=== PATIENT | male | born 1970 | race African-American/Black ===

== ENCOUNTER 2023-09-18 18:25 | Inpatient (IN) | payer OTHER ==
[2023-09-18] MEDS: ACETAMINOPHEN 1000 MG/100 ML BAG IVPB ONE (20:26)
[2023-09-18 20:28] LABS: BASO % 0.2 % (0-2.0); EOS % 4.9 % (0-4.5); HEMATOCRIT 40.9 % (35.4-49); HEMOGLOBIN 13.7 GM/dL (11.7-16.9); LYMPH % 32.6 % (8-40); MCH 27.9 pg (25.7-33.7); MCHC 33.6 g/dl (32.0-35.9); MEAN PLT VOLUME 8.5 fl (7.5-11.1); MONO % 18.7 % (3.8-10.2); NEUT % 43.6 % (42.8-82.8); PLATELET COUNT 185 10^3/uL (134-434); RBC 4.92 M/mm3 (4.00-5.60); RDW 15.6 % (11.9-15.9); WHITE BLOOD COUNT 7.6 K/mm3 (4.0-10.0)
[2023-09-18] MEDS ORDERED: FAMOTIDINE 20 MG/50 ML IVPB 20 MG/50 ML MG IVPB ONE (20:48)
[2023-09-18] MEDS ORDERED: ONDANSETRON 4 MG/2 ML VIAL ONE (20:48)
[2023-09-18] MEDS ORDERED: DICYCLOMINE HCL 10 MG CAPSULE ONE (20:48)
[2023-09-18 20:51] LABS: CHLORIDE 112 mmol/L (98-107); POTASSIUM 5.6 mmol/L (3.5-5.1); SODIUM 140 mmol/L (136-145)
[2023-09-18 20:53] LABS: CALCIUM 9.2 mg/dL (8.5-10.1)
[2023-09-18 20:54] LABS: ANION GAP 4 mmol/L (4-13); BLOOD UREA NITROGEN 15.4 mg/dL (7-18); CO2 25 mmol/L (21-32); GLUCOSE,RANDOM 75 mg/dL (74-106); MAGNESIUM 2.1 mg/dL (1.8-2.4)
[2023-09-18 20:57] LABS: CREATININE 1.1 mg/dL (0.55-1.3); SGOT/AST 44 U/L (15-37); SGPT/ALT 22 U/L (13-61)
[2023-09-18 20:58] LABS: BILIRUBIN,TOTAL 0.9 mg/dL (0.2-1)
[2023-09-18 20:59] LABS: TOT PROT 8.4 g/dl (6.4-8.2)
[2023-09-18 21:00] LABS: ALK PHOS 88 U/L (45-117)
[2023-09-18] MEDS: LACTATED RINGERS SOLUTION 1000 ML INFUS.BAG IV ONE (21:02)
[2023-09-18] MEDS: ONDANSETRON 4 MG/2 ML VIAL IVPUSH ONE (21:02)
[2023-09-18] MEDS: FAMOTIDINE 20 MG/50 ML IVPB 20 MG/50 ML MG IVPB ONE (21:02)
[2023-09-18] MEDS: DICYCLOMINE HCL 20 MG TABLET PO ONE (21:02)
[2023-09-18] MEDS ORDERED: levETIRAcetam 500 MG/5 ML INJECTION VIAL IVPB ONE (21:24)
[2023-09-18] MEDS: levETIRAcetam 500 MG/5 ML INJECTION VIAL IVPB ONE (21:33)
[2023-09-18] MEDS ORDERED: LORazepam 2 MG/ML SDV VIAL IVPUSH PRN (23:39)
[2023-09-19 00:13] VITALS: BMI 22.8
[2023-09-19] MEDS: levETIRAcetam 500 MG/5 ML INJECTION VIAL IVPB SCH (01:10)
[2023-09-19 08:33] LABS: BASO % 0.3 % (0-2.0); EOS % 8.1 % (0-4.5); HEMATOCRIT 35.9 % (35.4-49); HEMOGLOBIN 12.3 GM/dL (11.7-16.9); LYMPH % 29.5 % (8-40); MCH 28.4 pg (25.7-33.7); MCHC 34.2 g/dl (32.0-35.9); MEAN PLT VOLUME 8.5 fl (7.5-11.1); MONO % 17.5 % (3.8-10.2); NEUT % 44.6 % (42.8-82.8); PLATELET COUNT 174 10^3/uL (134-434); POTASSIUM 3.3 mmol/L (3.5-5.1); RBC 4.33 M/mm3 (4.00-5.60); RDW 15.2 % (11.9-15.9); WHITE BLOOD COUNT 8.9 K/mm3 (4.0-10.0)
[2023-09-19 08:49] LABS: ALBUMIN 3.4 g/dl (3.4-5.0); CALCIUM 8.7 mg/dL (8.5-10.1)
[2023-09-19 08:50] LABS: BLOOD UREA NITROGEN 13.3 mg/dL (7-18); MAGNESIUM 1.8 mg/dL (1.8-2.4)
[2023-09-19 08:53] LABS: CREATININE 0.9 mg/dL (0.55-1.3); PHOSPHOROUS 2.4 mg/dL (2.5-4.9)
[2023-09-19 08:54] LABS: BILIRUBIN,TOTAL 0.9 mg/dL (0.2-1); TOT PROT 6.8 g/dl (6.4-8.2)
[2023-09-19] MEDS ORDERED: cloNIDine HCL 0.1 MG TABLET PO PRN (08:59)
[2023-09-19] MEDS ORDERED: LOPERAMIDE HCL 2 MG CAPSULE PO PRN (09:02)
[2023-09-19] MEDS ORDERED: DICYCLOMINE HCL 10 MG CAPSULE PO PRN (09:02)
[2023-09-19] MEDS ORDERED: BENZOCAINE/MENTHOL (CHLORASEPTIC ) LOZENGE MM PRN (09:02)
[2023-09-19] MEDS ORDERED: ACETAMINOPHEN 325 MG TABLET (FP) PO PRN (09:02)
[2023-09-19] MEDS ORDERED: ONDANSETRON *ODT* 4 MG TABLET SL PRN (09:02)
[2023-09-19] MEDS ORDERED: CARVEDILOL 6.25 MG TABLET (FP) PO ONE (10:00)
[2023-09-19] MEDS: LOSARTAN POTASSIUM 50 MG TABLET PO SCH (10:17)
[2023-09-19] MEDS: methaDONE HCL 10 MG TABLET PO ONE (10:18)
[2023-09-19] MEDS: NAPH,MB-DB/K PH,MBDB POWDER PACKET PO SCH (10:18)
[2023-09-19] MEDS: MAGNESIUM OXIDE 400 MG TABLET (FP) PO ONE (10:18)
[2023-09-19] MEDS: POTASSIUM CHLORIDE TABS 20 MEQ TABLET.ER (FP) PO SCH (10:18)
[2023-09-19] MEDS: PRENATAL VITAMINS W/ FOLIC ACID TABLET (FP) PO SCH (10:19)
[2023-09-19] MEDS: BISMUTH SUBSALICYLATE 524 MG/30 ML PO PRN (10:19)
[2023-09-19] MEDS: hydrOXYzine PAMOATE 25 MG CAPSULE (FP) PO PRN (10:20)
[2023-09-19] MEDS: levETIRAcetam 500 MG TABLET (FP) PO SCH (11:29)
[2023-09-19 15:15] LABS: PH,URINE 5.5 (5.0-8.0); URINE APPEARANCE CLEAR; URINE BILIRUBIN NEGATIVE (NEGATIVE); URINE COLOR YELLOW; URINE GLUCOSE (UA) NEGATIVE (NEGATIVE); URINE KETONE TRACE (NEGATIVE); URINE LEUK ESTERASE NEGATIVE (NEGATIVE); URINE NITRITE NEGATIVE (NEGATIVE); URINE PROTEIN TRACE (NEGATIVE); URINE UROBILINOGEN 0.2 mg/dL (0.2-1.0)
[2023-09-19 15:27] LABS: COCAINE, UR NEGATIVE (NEGATIVE); OPIATES, URI NEGATIVE (NEGATIVE); PHENCYCLIDINE,URINE NEGATIVE (NEGATIVE); URINE AMPHETAMINES NEGATIVE (NEGATIVE); URINE BARBITURATES NEGATIVE (NEGATIVE)
[2023-09-19 15:30] LABS: METHADONE, UR POSITIVE (NEGATIVE); URINE BENZODIAZEPINES POSITIVE (NEGATIVE)
[2023-09-19] MEDS: MAGNESIUM HYDROX 2400MG/30ML ORAL SUSPENSION 30 ML CUP PO PRN (20:32)
[2023-09-19] MEDS: SPIRONOLACTONE 25 MG TABLET PO SCH (21:32)
[2023-09-19] MEDS: MELATONIN 5 MG TABLETS PO SCH (21:32)
[2023-09-19] MEDS: CARVEDILOL 6.25 MG TABLET (FP) PO SCH (21:32)
[2023-09-19] MEDS: THIAMINE 100 MG TABLET PO SCH (21:34)
[2023-09-20 09:16] LABS: BASO % 0.4 % (0-2.0); HEMATOCRIT 36.3 % (35.4-49); HEMOGLOBIN 12.5 GM/dL (11.7-16.9); LYMPH % 24.6 % (8-40); MCH 28.6 pg (25.7-33.7); MCHC 34.3 g/dl (32.0-35.9); MEAN CELL VOLUME 83.3 fl (80-96); MEAN PLT VOLUME 8.5 fl (7.5-11.1); MONO % 15.6 % (3.8-10.2); NEUT % 49.4 % (42.8-82.8); PLATELET COUNT 184 10^3/uL (134-434); RBC 4.36 M/mm3 (4.00-5.60); RDW 15.2 % (11.9-15.9); WHITE BLOOD COUNT 10.6 K/mm3 (4.0-10.0)
[2023-09-20] MEDS: FUROSEMIDE 40 MG TABLET (FP) PO SCH (09:35)
[2023-09-20 09:37] VITALS: BP 142/80; PULSE 53; RESP 18; TEMP 99
[2023-09-20 09:37] LABS: POTASSIUM 3.6 mmol/L (3.5-5.1)
[2023-09-20 09:48] LABS: ALBUMIN 3.5 g/dl (3.4-5.0); CALCIUM 8.9 mg/dL (8.5-10.1); MAGNESIUM 1.8 mg/dL (1.8-2.4)
[2023-09-20 09:49] LABS: BLOOD UREA NITROGEN 10.1 mg/dL (7-18)
[2023-09-20 09:52] LABS: PHOSPHOROUS 1.8 mg/dL (2.5-4.9)
[2023-09-20 09:53] LABS: BILIRUBIN,TOTAL 0.9 mg/dL (0.2-1); TOT PROT 6.9 g/dl (6.4-8.2)
[2023-09-20] MEDS: MAGNESIUM OXIDE 400 MG TABLET (FP) PO ONE (10:50)
[2023-09-20] MEDS: MAG HYDROX/AL HYDROX/SIMETH 30 ML UNIT-DOSE CUP PO PRN (13:30)
[2023-09-21] MEDS ORDERED: methaDONE HCL 10 MG TABLET PO ONE (10:00)
[2023-09-21] MEDS ORDERED: MAGNESIUM OXIDE 400 MG TABLET (FP) PO SCH (10:00)
[2023-09-23] MEDS ORDERED: methaDONE HCL 10 MG TABLET PO ONE (10:00)
== END 2023-09-20 14:00 | disposition other institution (70) | DRG 53 ==
LOC: JER 18:25 → JERBED 21:08 → OBSVTOIN 23:31 → J8W 09-19 00:20
PROVIDERS: ADMIT Internal Medicine; ATTEND Nurse Practitioner Acute Care
DX: R56.9 Unspecified convulsions (principal); I11.0 Hypertensive heart disease with heart failure; I50.22 Chronic systolic (congestive) heart failure; F11.10 Opioid abuse, uncomplicated; J45.909 Unspecified asthma, uncomplicated; F17.210 Nicotine dependence, cigarettes, uncomplicated; G92.8 Other toxic encephalopathy
CPT/HCPCS: 36415; 70450-TC; 72070-TC-FY; 72100-TC-FY; 80053; 80307; 81003; 82140; 82550; 82553; 82962; 83735; 84100; 84484; 85025; 86780; 87086; 93005; 93010; 93306-TC; 99285-25; G0378